=== PATIENT | female | born 1950 | race Caucasian/White ===

== ENCOUNTER → 2023-09-21 16:04 | Outpatient (REF) | payer MEDICARE, SELFPAY | LOC: RAD 16:04 | PROVIDERS: ATTENDING PHYSICIAN Family Medicine | DX: J32.0 Chronic maxillary sinusitis (principal) | CPT/HCPCS: 70486 ==

== ENCOUNTER → 2023-11-29 11:11 | Outpatient (REF) | payer MEDICARE, SELFPAY | LOC: WDC 11:11 | PROVIDERS: ATTENDING PHYSICIAN Family Medicine | DX: Z12.31 Encounter for screening mammogram for malignant neoplasm of breast (principal) | CPT/HCPCS: 77063; 77067 ==

== ENCOUNTER → 2024-07-31 13:21 | Outpatient (REF) | payer MEDICARE, SELFPAY | LOC: RAD 13:21 | PROVIDERS: ATTENDING PHYSICIAN Family Medicine | DX: Z78.0 Asymptomatic menopausal state (principal) | CPT/HCPCS: 77080 ==

== ENCOUNTER → 2024-12-28 13:29 | Outpatient (REF) | payer MEDICARE, SELFPAY | LOC: WDC 13:29 | PROVIDERS: ATTENDING PHYSICIAN Family Medicine | DX: Z12.31 Encounter for screening mammogram for malignant neoplasm of breast (principal) | CPT/HCPCS: 77063; 77067 ==